=== PATIENT | female | born 1950 | race Caucasian/White ===

== ENCOUNTER → 2017-06-02 | Outpatient (CLI) | payer MEDICARE, OTHER | END | disposition home or self-care (01) | LOC: GMAM 10:16 | PROVIDERS: ATTEND Family Medicine | DX: R10.84 Generalized abdominal pain (principal) ==

== ENCOUNTER → 2017-07-11 | Outpatient (CLI) | payer MEDICARE, OTHER | END | disposition home or self-care (01) | LOC: GMA 16:11 | PROVIDERS: ATTEND Nurse Practitioner Family | DX: I10 Essential (primary) hypertension (principal) ==

== ENCOUNTER → 2017-08-02 | Outpatient (CLI) | payer MEDICARE, OTHER | END | disposition home or self-care (01) | LOC: GMA 14:24 | PROVIDERS: ATTEND Nurse Practitioner Family | DX: L03.90 Cellulitis, unspecified (principal) ==

== ENCOUNTER → 2018-05-03 | Outpatient (CLI) | payer OTHER | LOC: GMAM 13:19 | PROVIDERS: ATTEND Family Medicine | DX: E04.1 Nontoxic single thyroid nodule (principal); E55.9 Vitamin D deficiency, unspecified ==

== ENCOUNTER → 2018-05-17 | Outpatient (CLI) | payer OTHER ==
--- NOTE | 2018-05-17 20:00 | CT ---
Procedure: CT LUNG SCREENING Exam Date: 05/17/2018. Ordering Provider: Reddy Alex Clinical Indication: LUNG SCREEN This patient meets eligibility criteria for low-dose CT lung cancer screening. Comparison: CT chest with contrast 07/31/2014. Technique: Using a multislice scanner, sequential helical axial imaging was obtained in the thorax, 2.5 mm thickness, 2.5 mm separation, from the level of the thoracic inlet through the lung bases without IV contrast. A low dose protocol was utilized. CTDI: 1.75 mGy. 120. kVp. 45 mA. 2D sagittal and coronal reconstructed images, 6.0 mm thickness, were obtained. This exam was performed according to our departmental dose optimization program which includes use of automated exposure control, adjustment of the mA and/or kV according to patient size and/or use of iterative reconstruction technique. FINDINGS: Lungs and large airways: Thickening of the horizontal fissure. Minimal mosaic density in the bilateral lower lobes. Intersegmental fissure thickening in the inferior lingula. Focal thickening inferior left major fissure. No abnormal nodules masses or infiltrates. Pleura: Scattered areas of focal thickening with minimal thickening in the apices. No pleural effusion or pneumothorax. Mediastinum and dimitris: Evaluation of the soft tissues limited due to lack of IV contrast and screening technique. No large soft tissue masses. Heart and great vessels: Minimal calcification in the aortic arch. Coronary artery calcifications. Chest wall, lower neck, axillae: Limited by lack of IV contrast. No asymmetric soft tissue masses. Heterogeneous density in the thyroid gland. Upper abdomen: Included peritoneal with no free air or fluid. No enlargement of the included organs. Bones: Spondylosis at several levels of the thoracic spine. Minimal dextroscoliosis. No lytic or blastic lesions. IMPRESSION: 1. Mosaic density in the lung bases is nonspecific finding but can indicate early findings of an obstructive pulmonary process or emphysema. No abnormal nodules infiltrates and no masses. No pleural effusion or pneumothorax. Please see ACR lung rads screening assessment below.* *Lung RADS category Category 1 - No nodule or definitely benign nodules (probability of malignancy less than 1%). Follow-up: Continue annual screening with Low Dose Chest CT in 12 months. Electronically signed by: Sacha Hsieh MD 05/17/2018 7:58 PM CDT
== END ==
LOC: CT 13:30
PROVIDERS: ATTEND Family Medicine
DX: Z87.891 Personal history of nicotine dependence (principal)

== ENCOUNTER → 2018-05-22 | Outpatient (CLI) | payer MEDICARE, OTHER ==
--- NOTE | 2018-05-23 14:13 | MAM ---
EXAM DESCRIPTION: 3D Screening BILATERAL : Digital Mammography. CLINICAL HISTORY: 68 years Female ANNUAL SCREENING . No complaints. No personal history or family history of breast cancer. Childbirth. Hysterectomy 32 years ago. Currently on HRT. COMPARISON: Baseline study at this facility.. No prior reports available. TECHNIQUE: Bilateral CC and MLO projection full-field images, Digital tomosynthesis mammographic technique. Bilateral digital 2-D full-field MLO images. CAD not utilized. FINDINGS: The breast parenchymal density pattern is: Scattered areas of fibroglandular density. No skin thickening or nipple retraction. Bilateral solitary microcalcifications. Focal asymmetry in the upper outer quadrant of the anterior middle third of the right breast at the 800 clock position. No new focal, stellate mass or density, focal asymmetry , and no suspicious microcalcifications left breast. IMPRESSION: BI-RADS CATEGORY: 0 - INCOMPLETE- Need additional imaging evaluation. FOLLOW-UP: Recall for additional imaging: Special focal and full-field digital right breast diagnostic images and targeted right breast ultrasound if indicated by the diagnostic images.. Written communication concerning the IMPRESSION and Follow-up, will be mailed to the patient and referring health care provider. Electronically signed by: Sacha Hsieh MD 05/23/2018 2:11 PM CDT
== END ==
LOC: MAMMO 11:00
PROVIDERS: ATTEND Family Medicine
DX: Z12.31 Encounter for screening mammogram for malignant neoplasm of breast (principal)

== ENCOUNTER → 2018-06-06 | Outpatient (CLI) | payer OTHER ==
--- NOTE | 2018-06-06 14:56 | MAM ---
EXAM DESCRIPTION: Diagnostic Mammo,Right: Digital Mammography CLINICAL HISTORY: 68 yearsFemaleABNORMAL MAMMOGRAM focal asymmetry upper outer quadrant of the anterior right breast.. COMPARISON: Bilateral screening digital breast tomosynthesis 05/22/2018. Targeted ultrasound right breast included with this study. TECHNIQUE: Right LM projection full-field images, digital mammographic tomosynthesis technique. Digital 2-D Spot compression of the region of interest in the CC and MLO projections. CAD not utilized. FINDINGS: The breast parenchymal density pattern is: Scattered areas of fibroglandular density. No skin thickening or nipple retraction focal asymmetry is less dense on the special images. Coarse calcifications are again noted. No new focal, stellate mass or density, focal asymmetry , and no suspicious microcalcifications right breast ULTRASOUND: Scanning of the lateral right breast in the upper outer quadrant with emphasis on the anterior middle third of the right breast. Mostly fatty echotexture with scattered islands of fibroglandular tissues. No distinct solid mass or distinct cyst. No parenchymal edema or large calcifications. No overlying skin changes. No abnormal vascularity. IMPRESSION: Benign exam. BIRAD CATEGORY: 2 BENIGN FINDINGS. RECOMMENDATIONS: FOLLOW UP: Return to routine digital bilateral screening, one year interval from April 2018. The FINDINGS and the FOLLOW-UP plan were reviewed in person with the patient after the examination. Written communication explaining the IMPRESSION and FOLLOW-UP will be mailed to the patient and referring care provider. According to the [employer], yearly mammograms are recommended starting at age 40 and continuing as long as a woman is in good health. Any breast change noted on a breast self-exam should be reported promptly to the patient's healthcare provider. Breast MRI is recommended for women with an approximately 20-25% or greater lifetime risk of breast cancer, including women with a strong family history of breast or ovarian cancer and women who have been treated for Hodgkin's disease. A negative mammographic report should not delay tissue diagnosis in patients with significant clinical history or physical findings. Extremely dense breast tissue limits the sensitivity of digital mammography. Electronically signed by: Sacha Hsieh MD 06/06/2018 2:55 PM CDT
--- NOTE | 2018-06-06 15:02 | US ---
EXAM DESCRIPTION: Breast,Right: Ultrasound CLINICAL HISTORY: 68 yearsFemaleABNL MAMMO COMPARISON: Digital diagnostic tomosynthesis right breast on this visit. TECHNIQUE: Transcutaneous scanning of the right breast utilizing subramanian-scale and Doppler modes. Scanning performed by the medical care manager and Dr. Hsieh. FINDINGS: Scanning of the lateral right breast in the upper outer quadrant with emphasis on the anterior middle third of the right breast. Mostly fatty echotexture with scattered islands of fibroglandular tissues. No distinct solid mass or distinct cyst. No parenchymal edema or large calcifications. No overlying skin changes. No abnormal vascularity. IMPRESSION: 1. Bi-Rads Category 2: Benign. 2. Please refer to right breast diagnostic digital tomosynthesis examination and report on this visit. The FINDINGS and the FOLLOW-UP plan were reviewed in person with the patient after the examination. Written communication explaining the IMPRESSION and FOLLOW-UP will be mailed to the patient and referring care provider. Electronically signed by: Sacha Hsieh MD 06/06/2018 3:00 PM CDT
== END ==
LOC: MAMMO 10:26
PROVIDERS: ATTEND Family Medicine
DX: R92.8 Other abnormal and inconclusive findings on diagnostic imaging of breast (principal)
CPT/HCPCS: 76641; 77065; G0279

== ENCOUNTER → 2018-10-18 | Outpatient (CLI) | payer OTHER ==
--- NOTE | 2018-10-18 17:30 | US ---
US THYROID CLINICAL STATEMENT: THYROID NODULE. . No palpable mass. No previous thyroid surgery or therapy. COMPARISON: None FINDINGS: Size right thyroid lobe: 4.4 x 1.6 x 1.1 cm Size left thyroid lobe: 3.9 x 1.3 x 1.1 cm Size isthmus: 0.3 cm Estimated total number of nodules greater than or equal to 1 cm: None. Small hypoechoic nodules or cysts 3 mm diameter or less in the mid and lower pole of the right lobe. No abnormal vascularity or large calcifications or edema in the right lobe. Nodule 1: Size: 0.5 x 0.5 x 0.3 cm Location: Left Upper Composition: solid or almost completely solid: 2 points Echogenicity: hypoechoic: 2 points Shape: wider than tall: 0 points Margins: smooth: 0 points Echogenic foci: none: 0 points ACR Total Points: 4; ACR TI-RADS risk category: TR4 - moderately suspicious nodule. Nodule 2: Size: 0.4 x 0.3 x 0.3 cm Location: Left Mid Composition: solid or almost completely solid: 2 points Echogenicity: hypoechoic: 2 points Shape: wider than tall: 0 points Margins: smooth: 0 points Echogenic foci: none: 0 points ACR Total Points: 4; ACR TI-RADS risk category: TR4 - moderately suspicious nodule. Soft tissue around the thyroid gland shows no evidence of solid dominant mass or distinct cyst. No parenchymal edema or large calcifications. No overlying skin changes. Normal vascularity. IMPRESSION: 1. Nodule 1: ACR TI-RADS 2017 Category TR4. Recommend: No further follow-up.. Recommendations based upon [employer] Best Practice recommendations and ACR TI-RADS 2017 guidelines. Please see below*. 2. Nodule 2: ACR TI-RADS 2017 Category TR4. Recommend: No further follow-up. 3. Soft tissue around the thyroid gland is unremarkable. *ACR TI-RADS 2017 Recommendations: TR1: No FNA or follow up TR2: No FNA or follow up TR3: FNA if >/= 2.5 cm, follow up if 1.5 - 2.4 cm in 1, 3, and 5 years TR4: FNA if >/= 1.5 cm, follow up if 1.0 - 1.4 cm in 1, 2, 3, and 5 years TR5: FNA if >/= 1.0 cm, follow up if 0.5 - 0.9 cm every year for 5 years ACR TI-RADS recommends that no more than two nodules with the highest ACR TI-RADS total point should be biopsied and no more than four nodules should be followed. These recommendations do not apply to patients with increased risk for thyroid cancer or patients with symptomatic thyroid disease. Electronically signed by: Sacha Hsieh MD 10/18/2018 5:27 PM [facility]
== END ==
LOC: US 14:48
PROVIDERS: ATTEND Family Medicine
DX: E04.1 Nontoxic single thyroid nodule (principal)

== ENCOUNTER → 2019-06-06 | Outpatient (CLI) | payer OTHER ==
--- NOTE | 2019-06-07 10:20 | CT ---
Procedure: CT LUNG SCREENING Exam Date: 06/06/2019 Ordering Provider: Reddy Alex Clinical Indication: Former cigarette smoker . Smoking cessation 7 years. 5-10 pack year history. This patient meets eligibility criteria for low-dose CT lung cancer screening. Comparison: Low-dose CT lung cancer screening examination 05/17/2018. Technique: Using a multislice scanner, sequential helical axial imaging was obtained in the thorax, 2.5 mm thickness, 2.5 mm separation, from the level of the thoracic inlet through the lung bases without IV contrast. A low dose protocol was utilized for BMI less than 30: BMI: 23.6. CTDI: 1.76 mGy. 120. kVp. 45 mA. DLP 67.4 mGy-centimeters. 2D sagittal and coronal reconstructed images, 6.0 mm thickness, were obtained. This exam was performed according to our departmental dose optimization program which includes use of automated exposure control, adjustment of the mA and/or kV according to patient size and/or use of iterative reconstruction technique. Nodule measurements under 10 mm are given as mean value of 3 axes diameters. FINDINGS: Lungs and large airways: Mosaic densities in the lung parenchyma again noted. Horizontal fissure thickening again noted. Stable small para fissural nodule superior left major fissure. Pleural parenchymal scarring inferior lingula. No abnormal nodules or masses. No new focal infiltrates. Pleura and space: Negative Mediastinum and dimitris: evaluation limited by low dose technique and lack of IV contrast. Small nodes are stable. No dominant solid masses. Heart and great vessels: Coronary artery calcification and atherosclerotic calcifications in the aortic arch stable. Chest wall, lower neck, axillae: Evaluation also limited by same factors as described above. Negative. Upper abdomen: Evaluation limited by low-dose technique. No free fluid or free air in the included peritoneal cavity. Gallbladder partially visualized. Included spleen and adrenal glands normal size and density. Osseous structures: Evaluation limited by low dose MIP technique. Spondylosis midthoracic spine. IMPRESSION: Minimal chronic parenchymal process bilaterally is stable. No abnormal nodules and no masses. No focal infiltrates.. [employer] Best [employer] recommendations: Please see below for Lung RADS category and FOLLOW-UP.* *Lung RADS category Category 1 - No nodule or definitely benign nodules (probability of malignancy less than 1%). Follow-up: Continue annual screening with Low Dose Chest CT in 12 months. Electronically signed by: aScha Hsieh MD 06/07/2019 10:18 AM CDT
== END ==
LOC: CT 13:30
PROVIDERS: ATTEND Family Medicine
DX: Z87.891 Personal history of nicotine dependence (principal)

== ENCOUNTER 2019-09-14 03:03 | Emergency (ER) | payer OTHER ==
[2019-09-14] MEDS ORDERED: HYDROmorphone HCL INJ 2 MG/ML VIAL IM ONE (03:23)
--- NOTE | 2019-09-14 04:40 | RAD ---
EXAM: XR Left Humerus, 2 or More Views CLINICAL HISTORY: The patient is 69 years old and is Female; fall with pain TECHNIQUE: Frontal and lateral views of the left humerus. COMPARISON: No relevant prior studies available. FINDINGS: BONES/JOINTS: Anterior shoulder dislocation is present. Deformity of the greater tuberosity is noted. SOFT TISSUES: Unremarkable. IMPRESSION: Findings suggest fracture dislocation of the proximal left humerus. Electronically signed by: Argelia Hernández MD 09/14/2019 4:38 AM [facility]
--- NOTE | 2019-09-14 04:40 | RAD ---
EXAM: XR Left Shoulder Complete, 2 or More Views CLINICAL HISTORY: The patient is 69 years old and is Female; fall with pain TECHNIQUE: Two or more views of the left shoulder. COMPARISON: No relevant prior studies available. FINDINGS: BONES/JOINTS: The humeral head is anteriorly dislocated. Fracture of the greater tuberosity is noted. SOFT TISSUES: Unremarkable. LUNGS: The visualized lung is clear. IMPRESSION: Fracture dislocation of the proximal left humerus. Electronically signed by: Argelia Hernández MD 09/14/2019 4:39 AM [facility]
[2019-09-14] MEDS ORDERED: HYDROmorphone HCL INJ 2 MG/ML VIAL IV ONE (04:53)
[2019-09-14] MEDS ORDERED: ETOMIDATE INJECTION 2 MG/ML 20ML VIAL IV ONE (05:40)
--- NOTE | 2019-09-14 06:02 | ED.PDOC ---
History of Present Illness - General Chief Complaint: Upper Extremity Injury Stated Complaint: left arm pain Time Seen by Provider: 09/14/19 03:20 Source: patient Exam Limitations: no limitations - History of Present Illness Initial Comments: the patient is a 69-year-old female but accidentally fell tonight and injured her left upper extremity. There is deformity of the shoulder. She does have some numbness and tingling in her hand. Radial pulses strong. Capillary refill is within normal limits. No other injuries. No syncope. Timing/Duration: 1/2 hour Severity: severe Improving Factors: immobilization Worsening Factors: movement Associated Symptoms: denies symptoms Allergies/Adverse Reactions: Allergies Cefixime [From Suprax] Allergy (Verified 08/29/12 14:14) Cefpodoxime [From Vantin] Allergy (Verified 08/29/12 14:14) Penicillin G Allergy (Verified 08/29/12 14:14) Sodium Benzoate [From Suprax] Allergy (Verified 08/29/12 14:14) Sulfa Drugs Allergy (Verified 08/29/12 14:14) Home Medications: Ambulatory Orders Aspirin [Baby Aspirin] 81 mg PO QD 07/28/14 Lisinopril [Prinivil] 10 mg PO DAILY 07/28/14 Tramadol HCl 50 mg PO Q8HR PRN #20 tab 09/14/19 Review of Systems - Review of Systems Constitutional: States: no symptoms reported EENTM: States: no symptoms reported Respiratory: States: no symptoms reported Cardiology: States: no symptoms reported Gastrointestinal/Abdominal: States: no symptoms reported Genitourinary: States: no symptoms reported Musculoskeletal: States: see HPI Skin: States: no symptoms reported Neurological: States: see HPI Endocrine: States: no symptoms reported All other Systems: No Change from Baseline Past Medical History (General) - Patient Medical History Hx Seizures: No Hx Stroke: No Hx Dementia: No Hx Asthma: No Hx of COPD: No Hx Cardiac Disorders: No Hx Congestive Heart Failure: No Hx Pacemaker: No Hx Hypertension: Yes Hx Thyroid Disease: No Hx Diabetes: No Hx Gastroesophageal Reflux: No Hx Renal Disease: No Hx Cancer: No Hx of HIV: No Hx Hepatitis C: No Hx MRSA: No Surgical History: tonsillectomy, other - Vaccination History Hx Tetanus, Diphtheria Vaccination: No Hx Influenza Vaccination: Yes Hx Pneumococcal Vaccination: Yes - Social History Hx Tobacco Use: No Hx Chewing Tobacco Use: No Hx Alcohol Use: Yes Hx Substance Use: No Hx Substance Use Treatment: No Hx Depression: No Feels Threatened In Home Enviroment: No Feels Threatened In a Relationship: No Hx Physical Abuse: No Hx Emotional Abuse: No Hx Suspected Abuse: No - Female History Patient is a Female of Child Bearing Age (10 -59 yrs old): No Patient : No - Triage Comment ED Triage Comment: Patient has pain upon moving her left arm but is able to move her left shoulder. Family Medical History - Family History Grandparents Hx Cardiac Disease: Yes - Grandfather CA Physical Exam - Physical Exam General Appearance: Alert, Comfortable, No apparent distress Eye Exam: bilateral normal Ears, Nose, Throat: hearing grossly normal, normal ENT inspection Neck: full range of motion, supple Respiratory: lungs clear, normal breath sounds, no respiratory distress, no accessory muscle use Cardiovascular/Chest: normal peripheral pulses, no edema, other - regular rate Peripheral Pulses: radial,right: 2+, radial,left: 2+ Gastrointestinal/Abdominal: non tender, soft Rectal Exam: deferred Back Exam: no CVA tenderness, no vertebral tenderness Extremity: no pedal edema, normal capillary refill, other - pain in the left shoulder. Normal range of motion and strength about the left elbow wrist and hand. Sensation of the hand being asleep with possible mild decreased sensation of the hand. Neurologic: mixing machine tender II-XII nml as tested, alert, normal mood/affect, oriented x 3, other - see above Skin Exam: normal color Comments: Vital Signs - 24 hr 09/14/19 09/14/19 09/14/19 03:14 04:22 05:00 Temperature 97.3 F L 97.3 F L 97.8 F Pulse Rate [R 82 72 64 Finger] Respiratory 20 20 20 Rate Blood Pressure 181/110 158/85 139/79 [Right Arm] O2 Sat by Pulse 97 90 L 85 L Oximetry 09/14/19 05:34 Temperature Pulse Rate [R 74 Finger] Respiratory 20 Rate Blood Pressure 173/86 [Right Arm] O2 Sat by Pulse 95 Oximetry Progress - Progress Progress: 09/14/19 06:02 the patient is a 69-year-old female but accidentally fell and dislocated her left shoulder anteriorly. In doing so she appears to have sustained a small fracture at the greater tuberosity as well. The patient was having some obvious nerve impingement so urgent reduction was warranted. After risk and benefits were explained the patient agreed to proceed with reduction of the dislocation. We did wait 2 hours as the patient had just had essentially a bottle of water. 12 mg of etomidate was used with gentle traction for reduction. Patient tolerated this well. Respiratory was present along with nursing for this process. Repeat imaging indicates reduction. The patient will be written for tramadol for as needed use. She will be put in a shoulder immobilizer for now. I do want her to follow-up with orthopedics in the coming week for reevaluation, to see if any further management is going to be required with the fracture site. ER warnings were given for any worsening. [email or web address] [id number] [id number] - Results/Orders Results/Orders: x-ray of the left shoulder and humerus shows an anterior dislocation of the proximal humerus. Small fracture at thegreater tuberosity. Departure - Departure Clinical Impression: Fracture of proximal end of humerus Qualifiers: Encounter type: initial encounter Fracture type: closed Fracture morphology: unspecified fracture morphology Laterality: left Qualified Code(s): S42.202A - Unspecified fracture of upper end of left humerus, initial encounter for closed fracture Dislocation of left shoulder joint Qualifiers: Encounter type: initial encounter Qualified Code(s): S43.005A - Unspecified dislocation of left shoulder joint, initial encounter Disposition: Discharge to Home or Self Care Condition: Fair Departure Forms: ED Discharge - Pt. Copy, Patient Portal Self Enrollment Instructions: DI for Humeral Fracture, Shoulder Dislocation (DC) Diet: regular diet Activity: no lifting Referrals: Vel Calixto MD [Primary Care Provider] - 1-2 Weeks Prescriptions: Tramadol HCl 50 mg PO Q8HR PRN #20 tab PRN Reason: Moderate Pain Home Medications: Ambulatory Orders Aspirin [Baby Aspirin] 81 mg PO QD 07/28/14 Lisinopril [Prinivil] 10 mg PO DAILY 07/28/14 Tramadol HCl 50 mg PO Q8HR PRN #20 tab 09/14/19 Additional Instructions: the patient is a 69-year-old female but accidentally fell and dislocated her left shoulder anteriorly. In doing so she appears to have sustained a small fracture at the greater tuberosity as well. The patient was having some obvious nerve impingement so urgent reduction was warranted. reduction was performed under moderate sedation. Repeat imaging indicates reduction. The patient will be written for tramadol for as needed use. She will be put in a shoulder immobilizer for now. I do want her to follow-up with orthopedics in the coming week for reevaluation, to see if any further management is going to be required with the fracture site. she does still have some mild residual nerve irritation in the ulnar nerve distribution. This needs to be followed up as well. ER warnings were given for any worsening.
[2019-09-14 06:53] VITALS: TEMP 97.6; O2SAT 97
[2019-09-14 07:05] VITALS: BP 166/84
--- NOTE | 2019-09-14 07:48 | RAD ---
EXAM: XR Left Shoulder Complete, 2 Views CLINICAL HISTORY: The patient is 69 years old and is Female; post reduction of dislocation TECHNIQUE: Two views of the left shoulder. COMPARISON: Radiographs of the left shoulder from 09/14/2019 FINDINGS: BONES/JOINTS: Interval reduction of anterior shoulder dislocation. The glenohumeral joint is now well aligned. There is an acute fracture of the greater tuberosity, which is nondisplaced. SOFT TISSUES: No significant soft tissue swelling visualized. IMPRESSION: 1. Interval reduction of anterior shoulder dislocation. 2. Acute fracture of the greater tuberosity again noted. Electronically signed by: Allie Andrews MD 09/14/2019 7:46 AM [facility]
== END 2019-09-14 07:05 | disposition home or self-care (01) ==
LOC: ER 03:03
DX: S42.252A Displaced fracture of greater tuberosity of left humerus, initial encounter for closed fracture (principal); I10 Essential (primary) hypertension; Z79.899 Other long term (current) drug therapy; Z79.82 Long term (current) use of aspirin; Z88.8 Allergy status to other drugs, medicaments and biological substances; Z88.1 Allergy status to other antibiotic agents; Z88.0 Allergy status to penicillin; Z88.2 Allergy status to sulfonamides; W19.XXXA Unspecified fall, initial encounter; Y92.9 Unspecified place or not applicable
CPT/HCPCS: 73030; 73060; J1170

== ENCOUNTER → 2020-02-17 | Outpatient (CLI) | payer OTHER | LOC: GMAM 11:24 | PROVIDERS: ATTEND Family Medicine | DX: E55.9 Vitamin D deficiency, unspecified (principal); I10 Essential (primary) hypertension ==

== ENCOUNTER → 2020-06-05 | Outpatient (CLI) | payer OTHER ==
--- NOTE | 2020-06-06 12:12 | RAD ---
EXAM: Elbow,Left 3 Views CLINICAL HISTORY: PAIN IN LEFT ELBOW. TECHNIQUE: AP, lateral and oblique images. COMPARISON STUDY: None FINDINGS: Bone structures and joint spaces appear normal. No fracture or dislocation identified. No elbow joint effusion. IMPRESSION: Negative left elbow. Electronically signed by: Hayden Dupree MD 06/06/2020 12:11 PM CDT
== END ==
LOC: RAD 09:50
PROVIDERS: ATTEND Orthopaedic Surgery
DX: M25.522 Pain in left elbow (principal)

== ENCOUNTER → 2020-06-05 | Outpatient (CLI) | payer OTHER ==
--- NOTE | 2020-06-06 12:14 | RAD ---
EXAM: Hand,Left 3 Views CLINICAL HISTORY: PAIN IN LEFT HAND. TECHNIQUE: AP, lateral and oblique images. COMPARISON STUDY: None FINDINGS: Severe osteoarthritic changes are seen at the lateral carpal row. There is exuberant periarticular calcifications at the carpal/first metacarpal joint. Joint space loss is present at the lateral carpal row. IMPRESSION: Severe degenerative changes of the lateral carpal row, most pronounced at the carpal/first metacarpal joint. Electronically signed by: Hayden Dupree MD 06/06/2020 12:13 PM CDT
== END ==
LOC: RAD 11:11
PROVIDERS: ATTEND Orthopaedic Surgery
DX: M19.042 Primary osteoarthritis, left hand (principal)

== ENCOUNTER → 2020-06-11 | Outpatient (CLI) | payer OTHER ==
--- NOTE | 2020-06-12 11:56 | CT ---
Procedure: CT LUNG SCREENING Exam Date: June 11, 2020 Ordering Provider: Reddy Alex Clinical Indication: PERSONAL HISTORY OF TOBACCO DEPENDENCE . Smoking cessation over 15 years. 5-10 pack year history. This patient meets eligibility criteria for low-dose CT lung cancer screening. Comparison: Low-dose CT lung cancer screening examinations in May 2019 and April 2018 Technique: Using a multislice scanner, sequential helical axial imaging was obtained in the thorax, 2.5 mm thickness, 2.5 mm separation, from the level of the thoracic inlet through the lung bases without IV contrast. A low dose protocol was utilized for BMI less than 30: BMI: 21.5. CTDI: 1.75 mGy. 120. kVp. 45 mA. DLP 64 mGy-cm. 2D sagittal and coronal reconstructed images, 6.0 mm thickness, were obtained. This exam was performed according to our departmental dose optimization program which includes use of automated exposure control, adjustment of the mA and/or kV according to patient size and/or use of iterative reconstruction technique. Nodule measurements under 10 mm are given as mean value of 3 axes diameters. FINDINGS: Lungs and large airways: Bilateral septal thickening more prominent in the upper lung herrera. Bilateral pleural-parenchymal scarring. Stable small para fissural nodule in the left upper lobe abutting the superior left major fissure. No abnormal nodules and no mass. No new or focal infiltrate. Pleura and space: Minimal thickening but no calcifications and no acute process. Mediastinum and dimitris: evaluation limited by low dose technique and lack of IV contrast. Normal size nodes with no new nodes or dominant soft tissue mass. Heart and great vessels: Calcifications in the left main coronary artery and proximal LAD. Atherosclerotic calcifications in the aortic arch. Stable since the prior study. Chest wall, lower neck, axillae: Evaluation also limited by same factors as described above. Negative. Upper abdomen: Evaluation limited by low-dose technique. No free air or free fluid in the included peritoneal space. Normal density and size of the spleen and adrenal glands. Partial visualization of the gallbladder. . Osseous structures: Evaluation limited by low dose MIP technique. Spondylosis upper to mid thoracic spine. Arthrosis bilateral sternoclavicular joints. IMPRESSION: 1. Stable small perifissural nodule left upper lobe. Other chronic findings. No abnormal nodule and no mass. No new or focal infiltrate. [facility] Best Practice Recommendations: please see below for Lung RADS category and FOLLOW-UP.* *Lung RADS category Category 1 - No nodule or definitely benign nodules (probability of malignancy less than 1%). Follow-up: Continue annual screening with Low Dose Chest CT in 12 months. 2. Patient record indicates last screening and diagnostic breast imaging in May 2018; no breast screening in 2018. Consider re-enrolling patient in [facility] breast mammographic screening program. Electronically signed by: Sacha Hsieh MD 06/12/2020 11:55 AM CDT
== END ==
LOC: CT 06-08 15:33
PROVIDERS: ATTEND Family Medicine
DX: Z87.891 Personal history of nicotine dependence (principal); Z12.2 Encounter for screening for malignant neoplasm of respiratory organs; R91.1 Solitary pulmonary nodule; R91.8 Other nonspecific abnormal finding of lung field

== ENCOUNTER → 2020-07-10 | Outpatient (CLI) | payer OTHER ==
--- NOTE | 2020-07-12 16:01 | MRI ---
EXAM DESCRIPTION: Cervical Spine: MRI. CLINICAL HISTORY: 70 years Female CERVICAL DISC DISORDER C5-C6. Radiculopathy down left arm. COMPARISON: None. TECHNIQUE: Multiplanar, high-field MRI, multiple sequences, non-contrast Cervical spine. FINDINGS: C2-C3: No disc desiccation and minimal bulging. Trace anterolisthesis. Mild narrowing of the posterior canal due to posterior flavum ligamentum thickening abutting the posterior cord. Facets are negative. Bilateral neural foramina are patent. C3-C4: Disc desiccation and moderate loss anterior with disc bulging and endplate ridging. Schmorl's nodes inferior C3 endplate. Minimal endplate reactive changes. Posterior disc bulges in the midline and right of midline, abutting the cord. Bilateral uncinate spurs larger on the right. Degenerative hypertrophy and facet. Mild right neuroforaminal stenosis. Mild left neural foraminal narrowing. AP canal diameter 7 mm to the left of midline. C4-C5: Endplate reactive changes bilaterally more severe on the right. Posterior disc space loss. Trace retrolisthesis. Bilateral uncinate spurs. Borderline right neural foraminal stenosis and mild left neural foraminal stenosis. Moderate canal narrowing. Bilateral facet joints negative. C5-C6: Disc desiccation and minimal disc space loss. Anterior bulging with endplate ridging. Bilateral uncinate spurs. Posterior disc bulge abutting the cord and posterior ligament thickening. Moderate narrowing of the canal. Bilateral mild neural foraminal stenosis. Bilateral facets are unremarkable. C6-C7: Disc desiccation with anterior disc space loss and endplate ridging. No significant posterior bulging. Bilateral uncinate spurs larger on the left. Facet joints are unremarkable. Left neural foraminal stenosis. Mild to moderate canal narrowing. C7-T1: Disc desiccation anterior disc bulging and endplate ridging. Minimal posterior broad-based bulge. Mild canal narrowing. Mild bilateral neural foraminal narrowing. Normal signal in the T1-T2 disc with no bulging. Disc spaces preserved. Canal and neural foramina are patent. Facet joints are negative. Spinal alignment trace kyphosis C2 C4.. No cord compression or cord edema. Atlantoaxial joint negative. Base of the cerebellar tonsils is at the level of the foramen magnum. Paravertebral soft tissues negative.. Vertebral bodies are not compressed at any level. Otherwise normal marrow signal in the remaining vertebral bodies and the posterior elements. IMPRESSION: 1. Multilevel disc desiccation and endplate spondylosis. Multiple levels of uncinate spurs. Minimal facet hypertrophy. 2. Endplate spondylosis, disc bulging, and ligament thickening at C3-C4 with mild to moderate central canal stenosis. Mild right neural foraminal stenosis. Correlate for right C4 radiculopathy. 3. Bilateral neural foraminal stenosis C4-C5. Moderate canal narrowing. Correlate for bilateral C5 radiculopathy. 4. Bilateral uncinate spurs C5-C6 and bilateral mild neural foraminal stenosis. Correlate for bilateral C6 radiculopathy. Left C6-C7 neural foraminal stenosis. Correlate for left C7 radiculopathy. 5. Please refer to findings for discussion of results at the specific disc space levels. Electronically signed by: Sacha Hsieh MD 07/12/2020 4:00 PM [facility]
== END ==
LOC: MRI 12:49
PROVIDERS: ATTEND Psychiatry & Neurology Neurology
DX: M50.122 Cervical disc disorder at C5-C6 level with radiculopathy (principal); M50.13 Cervical disc disorder with radiculopathy, cervicothoracic region; M47.22 Other spondylosis with radiculopathy, cervical region; M48.02 Spinal stenosis, cervical region; M25.78 Osteophyte, vertebrae; M46.92 Unspecified inflammatory spondylopathy, cervical region; M43.12 Spondylolisthesis, cervical region; M24.28 Disorder of ligament, vertebrae

== ENCOUNTER → 2020-07-13 | Outpatient (CLI) | payer OTHER ==
--- NOTE | 2020-07-14 09:28 | MRI ---
Study: MRI of the Left Shoulder. Indication: ROTATOR CUFF TEAR Technique: Multiplanar, multi sequence MRI of the left shoulder was obtained without intravenous contrast. Comparison: None. Findings: Moderate AC joint osteoarthritis with tiny joint effusion. Type I acromion with moderate lateral downsloping. Small-volume subacromial/subdeltoid bursal fluid. High-grade supraspinatus and infraspinatus tendinosis with high-grade articular, effectively full-thickness, fullwidth supraspinatus tendon tearing with involvement of the anterior two thirds infraspinatus tendon. Torn articular fibers retracted to the level of the mid acromion. High-grade subscapularis tendinosis. Intracapsular long head biceps tendinosis. Mild atrophy and grade 1 fatty infiltration rotator cuff musculature. Circumferential labral truncation and degeneration. Mild to moderate glenohumeral joint osteoarthritis with mild grade 4 chondrosis and subchondral marrow change at the central glenoid. Tiny joint effusion. No acute fracture. Impression: High-grade supraspinatus and infraspinatus tendinosis with high-grade articular, effectively full-thickness, fullwidth supraspinatus tendon tearing with involvement of the anterior two thirds infraspinatus tendon. High-grade subscapularis tendinosis. Intracapsular long head biceps tendinosis. Mild atrophy and grade 1 fatty infiltration rotator cuff cuff musculature. Mild/moderate glenohumeral osteoarthritis with circumferential labral truncation/degeneration. Moderate AC joint osteoarthritis. Electronically signed by: Chong Birmingham MD 07/14/2020 9:26 AM [facility]
== END ==
LOC: MRI 11:38
PROVIDERS: ATTEND Psychiatry & Neurology Neurology
DX: M75.112 Incomplete rotator cuff tear or rupture of left shoulder, not specified as traumatic (principal); M75.82 Other shoulder lesions, left shoulder; M19.012 Primary osteoarthritis, left shoulder; M62.512 Muscle wasting and atrophy, not elsewhere classified, left shoulder

== ENCOUNTER → 2020-08-17 | Outpatient (CLI) | payer OTHER | LOC: GMAM 14:11 | PROVIDERS: ATTEND Family Medicine | DX: E04.1 Nontoxic single thyroid nodule (principal); E55.9 Vitamin D deficiency, unspecified; I10 Essential (primary) hypertension; E78.2 Mixed hyperlipidemia ==